=== PATIENT | male | born 1965 | race Caucasian/White ===

== ENCOUNTER 2017-07-16 18:02 | Emergency (ER) | payer OTHER ==
[~2017-07-16] VITALS: Ht 180.3 cm; Wt 108.9 kg
[~2017-07-16 18:02] MED LIST: TUSSIN CF COUG118 ML PO; ULTRAM50 MG PO
[2017-07-16] MEDS ORDERED: NITROFURANTOIN100 MG (18:20)
== END 2017-07-16 21:36 | disposition home or self-care (01) ==
LOC: ER 18:02
DX: N39.0 Urinary tract infection, site not specified (principal); R30.0 Dysuria

== ENCOUNTER 2018-05-25 12:00 | Emergency (ER) | payer OTHER ==
[~2018-05-25] VITALS: Ht 180.3 cm; Wt 108.9 kg
[~2018-05-25 12:00] MED LIST changes: +NITROFURANTOIN100 MG
[2018-05-25] MEDS ORDERED: COZAAR50 MG PO (12:26)
== END 2018-05-25 19:09 | disposition home or self-care (01) ==
LOC: ER 12:00
DX: K52.9 Noninfective gastroenteritis and colitis, unspecified (principal); E86.0 Dehydration